=== PATIENT | female | born 1985 | race Caucasian/White ===

== ENCOUNTER 2018-05-02 15:05 | Emergency (ER) | payer MEDICAID ==
[2018-05-02] MEDS ORDERED: IPRATROPIUM/ALBUTEROL 3 ML DEYVIAL IH ONE (15:29)
--- NOTE | 2018-05-02 15:36 | EDPHY ---
H & P Stated Complaint: URI Time Seen by Provider: 05/02/18 15:20 HPI/ROS: CHIEF COMPLAINT: Cough, congestion x1 week HISTORY OF PRESENT ILLNESS: 32-year-old female currently 6 months , quit smoking 1 week ago, complaining of productive cough, nasal congestion, dyspnea for the past 1 week. No chest pain. No back pain. No urinary abnormality. Fetus moving as normal. No vaginal bleeding or discharge. No flank pain. REVIEW OF SYSTEMS: A ten point review of systems was performed and is negative with the exception of the items mentioned in the HPI PAST MEDICAL & SURGICAL HISTORY: Currently 6 months . SOCIAL HISTORY: Quit tobacco use 7 days ago PHYSICAL EXAM (Prior to examination, patient consented to physical exam, hands were washed and my usual and customary physical exam procedures followed) 1) GENERAL: Well-developed, well-nourished, alert and oriented. Appears nontoxic. 2) HEAD: Normocephalic, atraumatic 3) HEENT: Pupils equal, round, reactive to light bilaterally. Sclera anicteric. Nasopharynx: Congestion., oropharynx, clear, no lesions, no tonsillar enlargement or exudate. 4) NECK: Full range of motion, no meningeal signs. 5) LUNGS: Mild bilateral end-expiratory wheeze with no retractions or accessory muscle use. No rhonchi, no retractions. 6) HEART: Regular rate and rhythm, no murmur, no heave, no gallop. 7) ABDOMEN: No guarding, no rebound, no focal tenderness, negative McBurney's, negative Son's, negative Rovsing's, negative peritoneal sign, 8) MUSCULOSKELETAL: Moving all extremities, no focal areas of tenderness, no obvious trauma. No peripheral edema or discoloration. 9) BACK: No CVA tenderness, no midline vertebral tenderness, no fluctuance, no step-off, no obvious trauma, no visual or palpable abnormality. 10) SKIN: No rash, no petechiae. 11) Psychiatric: Patient is oriented X 3, there is no agitation. DIFFERENTIAL DIAGNOSIS: In no particular include but limited to pneumonia, bronchitis, sinusitis, pulmonary embolus - Medical/Surgical History Hx Asthma: No Hx Chronic Respiratory Disease: No Hx Diabetes: No Hx Cardiac Disease: No Hx Renal Disease: No Hx Cirrhosis: No Hx Alcoholism: No Hx HIV/AIDS: No Hx Splenectomy or Spleen Trauma: No Other PMH: PMH: SUBSTANCE ABUSE (COCAINE/METH). PSH: T&A, hernia - Social History Smoking Status: Former smoker Constitutional: Initial Vital Signs Temperature (C) 36.8 C 05/02/18 15:16 Heart Rate 90 05/02/18 15:16 Respiratory Rate 18 05/02/18 15:16 Blood Pressure 102/63 05/02/18 15:16 O2 Sat (%) 97 05/02/18 15:16 O2 Delivery Mode Room Air Allergies/Adverse Reactions: No Known Allergies Allergy (Unverified 05/02/18 15:16) Home Medications: Medication Instructions Recorded Acetaminophen [Tylenol ES 500 mg 2,000 mg PO BID PRN 08/24/16 (*)] Ibuprofen [Motrin (*)] 800 mg PO BID PRN 08/24/16 Cephalexin [Keflex] 500 mg PO BID #13 cap 08/25/16 Albuterol [Proventil Inhaler HFA 1 - 2 puffs IH Q4PRN PRN #1 mdi 05/02/18 (*)] Azithromycin [Zithromax] 500 mg PO DAILY #1 tablet 05/02/18 Medical Decision Making ED Course/Re-evaluation: Patient maintain normal saturations, not hypoxemic, not tachycardic, not tachypneic, afebrile. She has been given DuoNeb treatment and notes subjective improvement in symptoms. Previously present mild end-expiratory wheeze now resolved. Doubt pulmonary embolus. Recommend albuterol, azithromycin prescription. Recommend that if she develops new or worsening symptoms to seek immediate medical attention. I saw this patient independently based on established practice protocols. Care of patient under supervision of secondary supervising physician Dr Winslow. - Data Points Medications Given: Discontinued Medications Albuterol/Ipratropium (Duoneb) 3 ml IH EDNOW ONE Stop: 05/02/18 15:30 Last Admin: 05/02/18 15:40 Dose: 3 ml Departure - Departure Disposition: Home, Routine, Self-Care Clinical Impression: Upper respiratory infection Condition: Good Instructions: Upper Respiratory Infection (ED) Additional Instructions: Return to the emergency department immediately for change in breathing habits, change in voice, change in swallowing habits, change in mental status, or any other symptoms that concern you. Referrals: Follow-up, with your OBGYN in 2 days [Other] - As per Instructions Prescriptions: Albuterol [Proventil Inhaler HFA (*)] 1 - 2 puffs IH Q4PRN PRN #1 mdi PRN Reason: Cough, Moderate Azithromycin [Zithromax] 500 mg PO DAILY #1 tablet
[2018-05-02 16:17] VITALS: BP 102/67
== END 2018-05-02 16:16 | disposition home or self-care (01) ==
DX: O99.512 Diseases of the respiratory system complicating pregnancy, second trimester (principal); J06.9 Acute upper respiratory infection, unspecified; Z3A.24 24 weeks gestation of pregnancy; Z87.891 Personal history of nicotine dependence